=== PATIENT | female | born 1935 | race Caucasian/White ===

== ENCOUNTER 2019-11-20 18:45 | Inpatient (IN) ==
[2019-11-20] MEDS ORDERED: *HR* HYDROmorphone (PF) 1 MG/ML SYRINGE IVP ONE (21:25)
[2019-11-20] MEDS ORDERED: Naloxone 0.4 MG/ML INJ IVP PRN ×2 (21:34→21:38)
[2019-11-20] MEDS ORDERED: 0.9 % Sodium Chloride 1,000 ML IVC SCH (21:45)
[2019-11-21] MEDS ORDERED: *HR* HYDROmorphone (PF) 1 MG/ML SYRINGE IVP ONE (03:48)
[2019-11-21] MEDS ORDERED: Dextrose Gel 15 GM/37.5 ML TUBE PO PRN ×4 (04:00→18:27)
[2019-11-21] MEDS ORDERED: *HR* Dextrose 50 % in Water (Syg) 50 ML SYRINGE IVP PRN ×2 (04:00→18:27)
[2019-11-21] MEDS ORDERED: Insulin DETEMIR 100 UNIT/ML X5UNITS SQ SCH (04:00)
[2019-11-21] MEDS ORDERED: D5% in Water 1,000 ML IVC PRN ×2 (04:00→18:27)
[2019-11-21 05:51] LABS: Prothrombin Time 11.9 Seconds (9.4-12.1)
[2019-11-21 05:53] LABS: Basophils # 0.1 K/mcL (0.0-0.2); Basophils % 0.6 %; Eosinophils % 0.1 %; Hematocrit 35.1 % (35.3-44.9); Immature Granulocytes % 0.4 % (0-4); Lymphocytes # 0.8 K/mcL (0.6-4.6); Mean Corpuscular HGB Conc 31.3 g/dL (31.6-35.5); Mean Corpuscular Hemoglobin 32.2 pg (28.0-33.3); Mean Corpuscular Volume 102.6 fL (83.0-100.0); Monocytes # 0.7 K/mcL (0.0-1.3); Monocytes % 6.2 %; Neutrophils # 10.3 K/mcL (1.6-8.9); Platelet Count 322 K/mcL (140-400); Red Blood Count 3.42 M/mcL (3.82-4.97); Red Cell Distribution Width 13.3 % (11.5-14.5); Segmented Neutrophils % 85.7 %
[2019-11-21 06:08] LABS: Albumin 3.6 g/dL (3.5-5.7); Albumin/Globulin Ratio 1.1 (1.1-2.2); Bilirubin,Total 0.5 mg/dL (0.3-1.0); Calcium 8.9 mg/dL (8.6-10.3); Globulin 3.3 g/dL (2.4-3.5); Magnesium 2.1 mg/dL (1.6-2.6); Phosphorous 3.9 mg/dL (2.7-4.5); Potassium 4.4 mEq/L (3.5-5.1); Total Protein 6.9 g/dL (6.4-8.9)
[2019-11-21 06:32] LABS: Folate 19.4 ng/mL (3.0-16.0)
[2019-11-21] MEDS: Insulin LISPRO 300 UNITS/3 ML VIAL SQ SCH ×3 (07:35→20:56)
[2019-11-21] MEDS ORDERED: Cholecalciferol (D-3) 1,000 UNIT (25MCG) TABLET PO SCH (09:00)
[2019-11-21 11:43] LABS: Troponin I 0.07 ng/mL (< 0.04)
[2019-11-21] MEDS ORDERED: 0.9 % Sodium Chloride 1,000 ML IVC SCH ×2 (12:15→18:27)
[2019-11-21] MEDS ORDERED: Nystatin Ointment 15 GM TUBE TP SCH (14:30)
[2019-11-21] MEDS ORDERED: Metoprolol XL (24 HR) Succ 50 MG TAB.ER.24H PO SCH (14:45)
[2019-11-21] MEDS ORDERED: Vancomycin 1,000 MG VIAL ONE (15:20)
[2019-11-21] MEDS ORDERED: Ethanol\\Acetic Acid\\Na Ace\\Ben 1,000 ML IRRIG.SOLN IR ONE (15:20)
[2019-11-21] MEDS ORDERED: Albuterol 2.5 MG/3 ML NEBULIZER IH ONE ×2 (15:21→18:27)
[2019-11-21] MEDS ORDERED: Albuterol 2.5 MG/3 ML NEBULIZER ONE (15:22)
[2019-11-21 15:30] LABS: Bilirubin,Urine Negative (Negative); Blood,Urine Large (Negative); Clarity,Urine Turbid (Clear); Color,Urine Yellow (Yellow); Glucose,Urine (UA) Normal (Normal); Ketones,Urine Negative (Negative); Leukocyte Esterase,Urine Large (Negative); Nitrite,Urine Negative (Negative); Protein,Urine >=300 mg/dL (Neg-Trace); Specific Gravity,Urine 1.021 (1.010-1.025); Urobilinogen,Urine Normal (Normal)
[2019-11-21 15:31] LABS: Squamous Epithelial Cell,Urine Many per lpf (None-Few); WBC,Urine TNTC per hpf (0-3)
[2019-11-21] MEDS ORDERED: Acetaminophen IV 1,000 MG/100 ML INFUS..BTL ONE (15:37)
[2019-11-21] MEDS ORDERED: *HR* Propofol 200 MG/20 ML VIAL IVP ONE (15:39)
[2019-11-21] MEDS ORDERED: Lidocaine HCL 4 ML Topical Solution (Laryng-O-Jet Kit Sterile Pak) TP ONE (15:40)
[2019-11-21] MEDS ORDERED: *HR* Succinylcholine 200 MG/10 ML VIAL IVP ONE (15:40)
[2019-11-21] MEDS ORDERED: Lidocaine -MPF 2% 2 ML VIAL ONE (15:40)
[2019-11-21 15:47] LABS: Bacteria,Urine Few per hpf (None-Few)
[2019-11-21] MEDS ORDERED: *HR* PHENYLEPHRINE 1,000 MCG/10 ML SYRINGE IVP ONE (16:02)
[2019-11-21] MEDS ORDERED: Ondansetron 4 MG/2 ML VIAL ONE (16:04)
[2019-11-21] MEDS ORDERED: *HR* FentaNYL (PF) 100 MCG/2 ML VIAL ONE (16:29)
[2019-11-21] MEDS ORDERED: Ondansetron 4 MG/2 ML VIAL IVP ONE (17:10)
[2019-11-21] MEDS ORDERED: *HR* OxyCODONE Immed Rel 5 MG TABLET PO PRN (17:10)
[2019-11-21] MEDS ORDERED: Morphine Sulfate 2 MG/ML SYRINGE IVP PRN (17:10)
[2019-11-21] MEDS ORDERED: Naloxone 0.4 MG/ML INJ IVP PRN ×2 (18:27)
[2019-11-21] MEDS: Insulin DETEMIR 100 UNIT/ML X5UNITS SQ SCH (21:39)
[2019-11-21] MEDS: Nystatin Ointment 15 GM TUBE TP SCH (21:39)
[2019-11-22] MEDS ORDERED: GuaiFENesin Liq 200 MG/10 ML UDC PO ONE (01:39)
[2019-11-22] MEDS ORDERED: Fluconazole 100 MG TABLET PO ONE (04:36)
[2019-11-22 06:05] LABS: Basophils # 0.1 K/mcL (0.0-0.2); Basophils % 0.6 %; Eosinophils # 0.4 K/mcL (0.0-0.6); Eosinophils % 4.1 %; Hematocrit 28.5 % (35.3-44.9); Immature Granulocytes % 0.2 % (0-4); Lymphocytes # 1.1 K/mcL (0.6-4.6); Lymphocytes % 10.8 %; Mean Corpuscular HGB Conc 30.9 g/dL (31.6-35.5); Mean Corpuscular Volume 103.6 fL (83.0-100.0); Monocytes % 9.6 %; Neutrophils # 7.6 K/mcL (1.6-8.9); Platelet Count 251 K/mcL (140-400); Red Blood Count 2.75 M/mcL (3.82-4.97); Red Cell Distribution Width 13.8 % (11.5-14.5); Segmented Neutrophils % 74.7 %; White Blood Count 10.2 K/mcL (4.3-11.1)
[2019-11-22 06:06] LABS: Hemoglobin 8.8 g/dL (11.5-15.4)
[2019-11-22 06:27] LABS: Calcium 8.2 mg/dL (8.6-10.3); Potassium 3.7 mEq/L (3.5-5.1)
[2019-11-22 06:28] LABS: % Iron Saturation 9 % (15-50); Iron 19 mcg/dL (50-170); Transferrin 157 mg/dL (203-362)
[2019-11-22 06:43] LABS: Ferritin 491 ng/mL (10-120)
[2019-11-22] MEDS: Insulin LISPRO 300 UNITS/3 ML VIAL SQ SCH ×3 (07:20→18:17)
[2019-11-22 07:44] LABS: Estimated Average Glucose 192 mg/dl
[2019-11-22] MEDS ORDERED: Vancomycin 1 EACH in 0.9 % Sodium Chloride 250 ML IVPB SCH (08:00)
[2019-11-22] MEDS: Cholecalciferol (D-3) 1,000 UNIT (25MCG) TABLET PO SCH (09:56)
[2019-11-22] MEDS: Aspirin Enteric Coated 325 MG Tablet PO SCH (09:56)
[2019-11-22] MEDS: Nystatin Ointment 15 GM TUBE TP SCH ×2 (09:56→22:22)
[2019-11-22] MEDS: Metoprolol XL (24 HR) Succ 50 MG TAB.ER.24H PO SCH (09:57)
[2019-11-22] MEDS ORDERED: E-Z-HD (BARIUM SULF) SUSPENSION PO ONE (11:51)
[2019-11-22] MEDS ORDERED: E-Z-PAQUE (BARIUM SULF) SUSP 1 BOTTLE PO ONE (11:51)
[2019-11-22 13:10] LABS: Hematocrit 27.2 % (35.3-44.9); Hemoglobin 8.7 g/dL (11.5-15.4)
[2019-11-22] MEDS: cefTRIAXone 1,000 MG in Water for inj. (sterile) 10 ML IVP SCH (15:05)
[2019-11-22] MEDS ORDERED: Aminoglycoside Consult 1 EACH MC ONE (15:59)
[2019-11-22] MEDS ORDERED: Acetaminophen 325 MG TABLET PO ONE (21:04)
[2019-11-22] MEDS: Insulin DETEMIR 100 UNIT/ML X5UNITS SQ SCH (22:21)
[2019-11-23] MEDS ORDERED: Levalbuterol Neb 1.25 MG/3 ML IH ONE (00:13)
[2019-11-23] MEDS: Insulin LISPRO 300 UNITS/3 ML VIAL SQ SCH ×4 (02:17→17:03)
[2019-11-23 05:06] LABS: Basophils # 0.1 K/mcL (0.0-0.2); Basophils % 0.9 %; Eosinophils # 0.7 K/mcL (0.0-0.6); Eosinophils % 7.3 %; Hematocrit 26.5 % (35.3-44.9); Immature Granulocytes % 0.6 % (0-4); Lymphocytes # 1.5 K/mcL (0.6-4.6); Mean Corpuscular HGB Conc 30.2 g/dL (31.6-35.5); Mean Corpuscular Hemoglobin 31.6 pg (28.0-33.3); Mean Corpuscular Volume 104.7 fL (83.0-100.0); Mean Platelet Volume 11.2 fL (9.4-12.4); Monocytes # 0.9 K/mcL (0.0-1.3); Monocytes % 9.6 %; Platelet Count 225 K/mcL (140-400); Red Blood Count 2.53 M/mcL (3.82-4.97); Red Cell Distribution Width 13.9 % (11.5-14.5); Segmented Neutrophils % 65.6 %; White Blood Count 9.1 K/mcL (4.3-11.1)
[2019-11-23 05:35] LABS: Calcium 8.1 mg/dL (8.6-10.3); Potassium 3.7 mEq/L (3.5-5.1)
[2019-11-23] MEDS: cefTRIAXone 1,000 MG in Water for inj. (sterile) 10 ML IVP SCH (08:11)
[2019-11-23] MEDS: Aspirin Enteric Coated 325 MG Tablet PO SCH (08:12)
[2019-11-23] MEDS: Metoprolol XL (24 HR) Succ 50 MG TAB.ER.24H PO SCH (08:12)
[2019-11-23] MEDS: Cholecalciferol (D-3) 1,000 UNIT (25MCG) TABLET PO SCH (08:12)
[2019-11-23] MEDS: Nystatin Ointment 15 GM TUBE TP SCH ×2 (08:13→23:52)
[2019-11-23 09:59] LABS: Bilirubin,Urine Negative (Negative); Blood,Urine Small (Negative); Clarity,Urine Cloudy (Clear); Color,Urine Yellow (Yellow); Glucose,Urine (UA) Normal (Normal); Ketones,Urine Negative (Negative); Leukocyte Esterase,Urine Moderate (Negative); Nitrite,Urine Negative (Negative); Protein,Urine 100 mg/dL (Neg-Trace); Specific Gravity,Urine 1.022 (1.010-1.025); Urobilinogen,Urine Normal (Normal)
[2019-11-23 10:02] LABS: Bacteria,Urine None Seen per hpf (None-Few); Hyaline Casts,Urine Few per lpf (None-Few); Squamous Epithelial Cell,Urine Few per lpf (None-Few); WBC,Urine TNTC per hpf (0-3)
[2019-11-23] MEDS ORDERED: 0.9 % Sodium Chloride 1,000 ML IVC SCH (12:30)
[2019-11-23 13:34] LABS: Hematocrit 26.1 % (35.3-44.9); Hemoglobin 8.1 g/dL (11.5-15.4)
[2019-11-23 14:05] LABS: Sodium, Urine 34.3 mEq/L
[2019-11-23 18:38] LABS: Hemoglobin 6.1 g/dL (11.5-15.4)
[2019-11-23 20:34] LABS: Calcium 8.1 mg/dL (8.6-10.3)
[2019-11-23] MEDS ORDERED: 0.9 % Sodium Chloride 250 ML ONE (21:15)
[2019-11-23] MEDS: Insulin DETEMIR 100 UNIT/ML X5UNITS SQ SCH (21:45)
[2019-11-23] MEDS ORDERED: *HR* LORazepam 2 MG/ML VIAL IVP ONE (23:18)
[2019-11-24 00:42] LABS: Hematocrit 27.9 % (35.3-44.9)
[2019-11-24 00:43] LABS: Hemoglobin 8.5 g/dL (11.5-15.4)
[2019-11-24] MEDS: Insulin LISPRO 300 UNITS/3 ML VIAL SQ SCH ×4 (02:14→18:40)
[2019-11-24 02:53] LABS: Hematocrit 27.4 % (35.3-44.9); Hemoglobin 8.6 g/dL (11.5-15.4)
[2019-11-24 03:04] LABS: Calcium 8.2 mg/dL (8.6-10.3); Potassium 3.8 mEq/L (3.5-5.1)
[2019-11-24] MEDS ORDERED: 0.9 % Sodium Chloride 250 ML ONE (05:50)
[2019-11-24] MEDS: cefTRIAXone 1,000 MG in Water for inj. (sterile) 10 ML IVP SCH (09:14)
[2019-11-24] MEDS: Cholecalciferol (D-3) 1,000 UNIT (25MCG) TABLET PO SCH (09:16)
[2019-11-24] MEDS: Aspirin Enteric Coated 325 MG Tablet PO SCH (09:16)
[2019-11-24] MEDS: Metoprolol XL (24 HR) Succ 50 MG TAB.ER.24H PO SCH (09:16)
[2019-11-24 10:54] LABS: Hematocrit 31.7 % (35.3-44.9); Mean Corpuscular HGB Conc 31.5 g/dL (31.6-35.5); Mean Corpuscular Hemoglobin 30.8 pg (28.0-33.3); Mean Platelet Volume 11.2 fL (9.4-12.4); Platelet Count 236 K/mcL (140-400); Red Blood Count 3.25 M/mcL (3.82-4.97); Red Cell Distribution Width 16.6 % (11.5-14.5)
[2019-11-24 10:58] LABS: Mean Corpuscular Volume 97.5 fL (83.0-100.0)
[2019-11-24] MEDS ORDERED: MOM Conc 10 ML UD.LIQ PO PRN (11:27)
[2019-11-24] MEDS ORDERED: Bisacodyl 10 MG RECTAL SUPPOSITORY RC PRN (12:38)
[2019-11-24] MEDS ORDERED: Benzonatate 100 MG CAPSULE PO PRN (12:51)
[2019-11-24] MEDS: Nystatin Ointment 15 GM TUBE TP SCH ×2 (13:02→21:41)
[2019-11-24] MEDS: Sennosides 8.6 MG TABLET PO SCH ×2 (14:56→21:39)
[2019-11-24] MEDS: Erythromycin OPTH Oint BOTH EYES SCH ×2 (15:05→21:40)
[2019-11-24] MEDS ORDERED: *HR* LORazepam 2 MG/ML VIAL IVP ONE (16:13)
[2019-11-24 17:10] LABS: Hematocrit 31.7 % (35.3-44.9); Hemoglobin 10.6 g/dL (11.5-15.4)
[2019-11-24] MEDS: Budesonide/Formoterol 80/4.5 1 PUFF INH IH SCH (21:26)
[2019-11-24] MEDS: Insulin DETEMIR 100 UNIT/ML X5UNITS SQ SCH (21:39)
[2019-11-25] MEDS: *HR* LORazepam 0.5 MG TABLET PO PRN ×2 (00:01→11:21)
[2019-11-25] MEDS: Insulin LISPRO 300 UNITS/3 ML VIAL SQ SCH ×4 (00:05→17:55)
[2019-11-25 02:36] LABS: Hematocrit 36.4 % (35.3-44.9); Hemoglobin 11.4 g/dL (11.5-15.4); Mean Corpuscular HGB Conc 31.3 g/dL (31.6-35.5); Mean Corpuscular Hemoglobin 30.6 pg (28.0-33.3); Mean Corpuscular Volume 97.6 fL (83.0-100.0); Mean Platelet Volume 11.5 fL (9.4-12.4); Platelet Count 324 K/mcL (140-400); Red Blood Count 3.73 M/mcL (3.82-4.97); Red Cell Distribution Width 16.6 % (11.5-14.5); White Blood Count 11.2 K/mcL (4.3-11.1)
[2019-11-25 02:58] LABS: Calcium 8.8 mg/dL (8.6-10.3)
[2019-11-25] MEDS: Budesonide/Formoterol 80/4.5 1 PUFF INH IH SCH ×2 (07:45→19:43)
[2019-11-25] MEDS: cefTRIAXone 1,000 MG in Water for inj. (sterile) 10 ML IVP SCH (10:03)
[2019-11-25] MEDS: Aspirin Enteric Coated 325 MG Tablet PO SCH (10:04)
[2019-11-25] MEDS: Metoprolol XL (24 HR) Succ 50 MG TAB.ER.24H PO SCH (10:04)
[2019-11-25] MEDS: Cholecalciferol (D-3) 1,000 UNIT (25MCG) TABLET PO SCH (10:04)
[2019-11-25] MEDS: Sennosides 8.6 MG TABLET PO SCH ×2 (10:04→20:10)
[2019-11-25] MEDS: Nystatin Ointment 15 GM TUBE TP SCH ×2 (10:18→20:15)
[2019-11-25] MEDS ORDERED: Furosemide 20 MG/2 ML VIAL IVP ONE (14:34)
[2019-11-25] MEDS: Erythromycin OPTH Oint BOTH EYES SCH ×3 (16:50→20:15)
[2019-11-25] MEDS: Insulin DETEMIR 100 UNIT/ML X5UNITS SQ SCH (20:14)
[2019-11-25] MEDS ORDERED: Insulin LISPRO 300 UNITS/3 ML VIAL SQ SCH (21:00)
[2019-11-26 02:27] LABS: Hematocrit 31.1 % (35.3-44.9); Mean Corpuscular HGB Conc 31.5 g/dL (31.6-35.5); Mean Corpuscular Hemoglobin 30.7 pg (28.0-33.3); Mean Corpuscular Volume 97.5 fL (83.0-100.0); Mean Platelet Volume 10.9 fL (9.4-12.4); Platelet Count 294 K/mcL (140-400); Red Blood Count 3.19 M/mcL (3.82-4.97); Red Cell Distribution Width 15.8 % (11.5-14.5); White Blood Count 7.8 K/mcL (4.3-11.1)
[2019-11-26 02:30] LABS: Hemoglobin 9.8 g/dL (11.5-15.4)
[2019-11-26 06:24] LABS: Hematocrit 30.6 % (35.3-44.9)
[2019-11-26 06:48] LABS: Calcium 8.6 mg/dL (8.6-10.3); Potassium 3.9 mEq/L (3.5-5.1)
[2019-11-26] MEDS: Budesonide/Formoterol 80/4.5 1 PUFF INH IH SCH (08:07)
[2019-11-26] MEDS: Cholecalciferol (D-3) 1,000 UNIT (25MCG) TABLET PO SCH (08:58)
[2019-11-26] MEDS: Sennosides 8.6 MG TABLET PO SCH (08:58)
[2019-11-26] MEDS: Metoprolol XL (24 HR) Succ 50 MG TAB.ER.24H PO SCH (08:58)
[2019-11-26] MEDS: Aspirin Enteric Coated 325 MG Tablet PO SCH (08:58)
[2019-11-26] MEDS: cefTRIAXone 1,000 MG in Water for inj. (sterile) 10 ML IVP SCH (08:58)
[2019-11-26 10:33] VITALS: BP 148/68
[2019-11-26 10:35] LABS: Hematocrit 32.3 % (35.3-44.9); Hemoglobin 10.4 g/dL (11.5-15.4)
[2019-11-26] MEDS: Insulin LISPRO 300 UNITS/3 ML VIAL SQ SCH ×2 (11:09→11:14)
[2019-11-26] MEDS: Erythromycin OPTH Oint BOTH EYES SCH (11:12)
[2019-11-26] MEDS: Nystatin Ointment 15 GM TUBE TP SCH (11:13)
== END 2019-11-26 16:00 | DRG 470 ==
LOC: 3NENU → SUATTDRO 21:34
PROVIDERS: ADMIT Internal Medicine; ATTEND Student in an Organized Health Care Education/Training Program